=== PATIENT | female | born 1995 | race Two or more races ===

== ENCOUNTER 2019-10-08 21:45 | Emergency (ER) | payer BC, OTHER ==
[~2019-10-08] VITALS: Ht 162.6 cm; Wt 60.8 kg
[2019-10-08] MEDS ORDERED: LORAZEPAM INJ 2 MG/ML VIAL ONE (22:09)
--- NOTE | 2019-10-08 22:10 | NUR ---
PATIENT CAME TO ER BED 10 C/O TAKING HEROIN THROUGH SMOKING AND SNORTING AND WAS GIVEN NARCAN BY RA. PATIENT IS AAO4. PATIENT STATES, "THE OTHER HOSPITALS GAVE ME ATIVAN AND DILAUDID" PATIENT IS BREATHING EVENLY AND UNLABORED ON ROOM AIR. CONNECTED TO MONITOR.
--- NOTE | 2019-10-08 22:18 | NUR ---
urine collected, sent to lab.
[2019-10-08 22:21] LABS: BASOPHILS % (AUTO) 0.2 % (0.0-2.0); EOSINOPHILS % (AUTO) 0.5 % (0.0-6.0); HEMATOCRIT 45 % (33-45); LYMPHOCYTES # (AUTO) 1.4 /CMM (0.8-4.8); LYMPHOCYTES % (AUTO) 8.2 % (20.0-44.0); MEAN CORPUSCULAR HGB CONC 33 g/dl (31.0-36.0); MEAN CORPUSCULAR VOLUME 83 fL (82-100); MONOCYTES # (AUTO) 0.8 /CMM (0.1-1.30); MONOCYTES % (AUTO) 4.9 % (2.0-12.0); NEUTROPHILS # (AUTO) 14.5 /CMM (1.8-8.9); NEUTROPHILS % (AUTO) 86.2 % (43.0-81.0); PLATELET COUNT (AUTO) 351 /CMM (150-450); RED BLOOD CELL COUNT(AUTO) 5.45 MIL/uL (4.0-5.2); WHITE BLOOD COUNT (AUTO) 16.8 K/uL (4.3-11.0)
[2019-10-08 22:28] LABS: APPEARANCE,URINE Slightly Cloudy (CLEAR); BILIRUBIN,URINE Negative (NEGATIVE); BLOOD, URINE Negative Ery/uL (NEGATIVE); COLOR,URINE Yellow (YELLOW); KETONES,URINE Negative (NEGATIVE); LEUKOCYTE ESTERASE ,URINE Negative (NEGATIVE); NITRITE, URINE Negative (NEGATIVE); PROTEIN,URINE 100 mg/dl (NEGATIVE); UGLUCOSE Negative (NEGATIVE); UROBILINOGEN,URINE 0.2 EU/dL (0.2)
[2019-10-08] MEDS ORDERED: IV NS 0.9% 1,000 ML BAG IV ONE (22:30)
[2019-10-08] MEDS ORDERED: LORAZEPAM INJ 2 MG/ML VIAL IVP ONE (22:30)
[2019-10-08 22:42] LABS: CALCIUM, SERUM 8.4 mg/dL (8.5-10.1); CARBON DIOXIDE 29 mmol/L (21-32); CHLORIDE 101 mmol/L (98-107); GLUCOSE 135 mg/dL (74-106); POTASSIUM 3.8 mmol/L (3.5-5.1); SODIUM SERUM 136 mmol/L (136-145); UREA NITROGEN, BLOOD 16 mg/dL (7-18)
[2019-10-08 22:55] LABS: ALANINE AMINOTRANSFERASE 149 U/L (12-78); ALBUMIN 3.9 g/dL (3.4-5.0); ALCOHOL, BLOOD < 3 mg/dL (0-0); ALKALINE PHOSPHATASE 99 U/L (46-116); ASPARTATE AMINOTRANSFERASE 64 U/L (15-37); BILIRUBIN,DIRECT 0.1 mg/dL (0.0-0.2); BILIRUBIN,TOTAL 0.2 mg/dL (0.2-1.0); TOTAL PROTEIN, SERUM 7.7 g/dL (6.4-8.2)
[2019-10-08 22:56] LABS: SALICYLATE 0.6 mg/dL (2.8-20.0)
[2019-10-08 22:57] LABS: ACETAMINOPHEN < 2 ug/ml (10-30)
[2019-10-08 23:19] LABS: BACTERIA,URINE Moderate /HPF (None Seen); MUCUS,URINE Moderate /LPF (None Seen); SQUAMOUS EPITHELIAL CELL,UR Moderate /HPF (None Seen)
--- NOTE | 2019-10-09 00:09 | NUR ---
PT MEDICALLY STABLE FOR D/C. TOLERATED PO INTAKE, WATER AND CRACKER , WELL W. NO CHOKING OR VOMITING EPISODE. PT AMBULATING VERY WELL W/ STEADY GAITS. IV removed. Catheter intact and site benign. Pressure and 4x4 applied to site. No bleeding noted.Patient discharged to home in stable condition. Written and verbal after care instructions given. Patient verbalizes understanding of instruction. PT WAS PICKED UP W/ HER DD.
[2019-10-09 00:36] VITALS: BP 122/78
== END 2019-10-09 00:36 | disposition home or self-care (01) ==
LOC: ER 21:46
DX: T40.1X1A Poisoning by heroin, accidental (unintentional), initial encounter (principal); F13.20 Sedative, hypnotic or anxiolytic dependence, uncomplicated; F32.9 Major depressive disorder, single episode, unspecified; Y92.89 Other specified places as the place of occurrence of the external cause
CPT/HCPCS: 36415; 80048; 80076; 80305; 80307; 80329; 81001; 85025; 87086; 96374; 99283; G0480; J2060; J7030; 81000-TC

== ENCOUNTER → 2019-10-10 | Emergency (ER) | payer BC ==
[~2019-10-10] VITALS: Ht 157.5 cm; Wt 59.9 kg
[2019-10-10 08:45] VITALS: BP 110/89
--- NOTE | 2019-10-10 08:46 | NUR ---
Patient eloped from facility. ER MD notified.
== END | disposition left against medical advice (07) ==
LOC: ER 08:39
DX: F10.239 Alcohol dependence with withdrawal, unspecified (principal); Y90.9 Presence of alcohol in blood, level not specified; Z53.21 Procedure and treatment not carried out due to patient leaving prior to being seen by health care provider

== ENCOUNTER 2020-07-07 15:47 | Emergency (ER) | payer BC ==
[~2020-07-07] VITALS: Ht 162.6 cm; Wt 54.4 kg
[2020-07-07] MEDS ORDERED: ALBUTEROL FS 2.5 MG/3 ML VIAL.NEB CONTNEB ONE (17:30)
[2020-07-07] MEDS ORDERED: IPRATROPIUM NEB FS 0.5 MG/2.5 ML AMPUL.NEB NEB ONE (17:30)
[2020-07-07] MEDS ORDERED: methylPREDNISolone SOD SUCC 125 MG/2ML VIAL IV ONE (17:30)
[2020-07-07] MEDS ORDERED: IV NS 0.9% 1,000 ML IV ONE (17:30)
[2020-07-07] MEDS ORDERED: IPRATROPIUM NEB FS 0.5 MG/2.5 ML AMPUL.NEB ONE (17:31)
[2020-07-07] MEDS ORDERED: ALBUTEROL FS 2.5 MG/3 ML VIAL.NEB ONE (17:31)
[2020-07-07] MEDS ORDERED: methylPREDNISolone SOD SUCC 125 MG/2ML VIAL ONE (17:35)
[2020-07-07 17:48] LABS: BASOPHILS % (AUTO) 0.5 % (0.0-2.0); EOSINOPHILS % (AUTO) 1.8 % (0.0-6.0); HEMATOCRIT 41 % (33-45); HEMOGLOBIN 13.7 g/dL (11.5-14.8); LYMPHOCYTES # (AUTO) 1.5 /CMM (0.8-4.8); LYMPHOCYTES % (AUTO) 18.3 % (20.0-44.0); MEAN CORPUSCULAR HGB CONC 34 g/dl (31.0-36.0); MEAN CORPUSCULAR VOLUME 89 fL (82-100); MONOCYTES # (AUTO) 0.4 /CMM (0.1-1.30); MONOCYTES % (AUTO) 5.5 % (2.0-12.0); NEUTROPHILS # (AUTO) 6.1 /CMM (1.8-8.9); NEUTROPHILS % (AUTO) 73.9 % (43.0-81.0); PLATELET COUNT (AUTO) 262 /CMM (150-450); RED BLOOD CELL COUNT(AUTO) 4.62 MIL/uL (4.0-5.2); WHITE BLOOD COUNT (AUTO) 8.2 K/uL (4.3-11.0)
--- NOTE | 2020-07-07 17:52 | NUR ---
patient came in to the er c/o Cough, congestion, sob, and fever x 3 days. On room air, breathing evenly and unlabored. Connected to the monitor and pulse ox. kept comfortable, will continue to monitor accordingly.
[2020-07-07 17:57] LABS: CALCIUM, SERUM 8.4 mg/dL (8.5-10.1); CREATININE 0.7 mg/dL (0.6-1.3); POTASSIUM 4.3 mmol/L (3.5-5.1)
[2020-07-07 18:08] LABS: ALBUMIN 3.7 g/dL (3.4-5.0); BILIRUBIN,TOTAL 0.3 mg/dL (0.2-1.0); TOTAL PROTEIN, SERUM 7.3 g/dL (6.4-8.2)
[2020-07-07] MEDS ORDERED: FLUT1DIS INH (18:34)
[2020-07-07] MEDS ORDERED: PRED50TA PO (18:34)
[2020-07-07] MEDS ORDERED: ALBU6.7H9 INH (18:34)
[2020-07-07 19:14] VITALS: BP 110/71
--- NOTE | 2020-07-07 19:14 | NUR ---
Patient discharged to home in stable condition. Written and verbal after care instructions given. Patient verbalizes understanding of instruction.IV removed. Catheter intact and site benign. Pressure and 4x4 applied to site. No bleeding noted.
== END 2020-07-07 19:14 | disposition home or self-care (01) ==
LOC: ER 15:56
DX: J45.909 Unspecified asthma, uncomplicated (principal); F41.9 Anxiety disorder, unspecified; G47.00 Insomnia, unspecified; F17.200 Nicotine dependence, unspecified, uncomplicated; Z79.899 Other long term (current) drug therapy
CPT/HCPCS: 36415; 71045; 80053; 84702; 85025; 93005; 94644; 96361; 96374; 99285; J2930; J7030